=== PATIENT | female | born 1950 | race Caucasian/White ===

== ENCOUNTER → 2023-10-26 12:00 | Outpatient (REF) | payer MEDICARE, OTHER, SELFPAY ==
--- NOTE | 2023-10-08 12:37 | PN.DIAED02 ---
Referral
DSME Class Series Code: [id number]
Referred For: Diabetes Self-Management Training, Self-Blood Glucose Monitoring, Disease Management
PHI Release Authorization Form Signed: Yes
Patient Problems:
Current Active Problems
Problem Status Onset
Type 2 diabetes mellitus with hyperglycemia ~07/16/23
Demographic
(1) Type 2 diabetes mellitus with hyperglycemia
Status: Acute Onset Date: ~07/16/23
Qualifiers:
Diabetes mellitus termite renewal inspector insulin use: without correction use Qualified Code(s): E11.65 - Type 2 diabetes mellitus with hyperglycemia
Code(s): E11.65 - Type 2 diabetes mellitus with hyperglycemia
Patient's primary language-: [place]
Education: College degree
Occupation: Professional
Hours Worked/Week: 20-40
Shift: Day
- Social
Primary Support Person: Self
Primary Care Takers: Self
Living Arrangements: Self & spouse
- Learning Methods
Preferred Method: Hands-on demonstration
Barriers to Learning: None
Glycemic Control
- Blood Glucose Monitoring Assessment
Blood glucose monitoring at home: No
Patient uses Alternate Site Testing: No
Patient instructed on Use and Limitation: No
- Ketone Monitoring Assessment
Patient monitoring ketone: No
- Hemoglobin A1c
Date: 07/02/23
A1C Percentage (%): 10
Medical History of Diabetes
Previous visit with Dietitian: No
Complications/Comorbidity/Specialist: Cataracts, Hypertension, Hyperlipidemia, Neuropathy
Measures
- Anthropometrics
Height: 5 ft 6 in
Actual Weight: 97.976 kg
- Blood Pressure / Pulse
Blood pressure: 197/105
Pulse: 92
- Diabetes Management
Medical Management for Diabetes: Complete physical exam (07/02/2023), Foot exam (07/02/2023), Pneumonia vaccination (07/02/2023)
Self-Care
- Tobacco Usage
Do you now, or have you ever smoked?: Never smoked
- Alcohol & Drugs Usage
Drinks Alcohol: Yes
Amount/day: Other (2 drinks/week)
Uses Recreational Drugs: No
- Meals & Dining
Meals & Dining: Patient skips meals: No, Food Intolerance / Allergy: No, Cultural / Baptism Dietary Needs: No
Primary Food Psychiatric Registered Nurse: Self
Primary Information Strategist: Self
Dining Out Frequency: 1-3x per week
- Physical Activity
Physical Limitation: No
Patient participates in physical Activity: No
- Self Foot-Care
Foot Problems: None
Performs Self Foot-Exam: Yes
Frequency: Daily
- Patient-Self Assessment
Diabetes Knowledge: Good
Feelings About Diabetes: Fear
General Health: Fair
Importance of Health: Extremely
Stress Level: Medium
Diabetes Interferes With:: Sports/exercise
Barriers to Diabetes Management: Nothing
Depression Survey Score: 6
- Diabetes Identification
Carries Diabetes Identification: No
Diabetes Identification Information Provided: No
Care Plan
- Education Needs
Patient Education Needs: Diabetes disease process, Chronic complications, Acute complications, Medication, Monitoring, Physical activity, Psychosocial Adjustment, Nutritional management, Goal setting & problem solving
Recommended Diabetes Training Program based on assessment: Outpatient Diabetes Education Program
- Plan of Care
Plan of Care:
Met with Maggie today for registration and initiation of Diabetes Self management. Pt was recommended by her PCP due to uncontrolled T2DM, with an A1C of 10% that was noted on recent blood work. Patient is taking Metformin 500mg BID. She does not
test her blood sugar at home and does not have a glucose monitor. Patient was offered a meter and she declined it, stating that she's going to ask her PCP for script for a CGM- Dexcom or Debbi. Discussed different brands of CGMs and the way they
work.
Patient does not exercise, she was counseled with emphasis on the importance of Physical activity, weight loss, need to adhere to a healthy life style including healthy eating, taking her medications and monitoring blood glucose. We spent a good
amount of time discussing dietary choices. Goals for physical activity were established; pt will start walking for 30 minutes, 3 days a week around the block [place] . increase her duration of exercise to 45 minutes, 5 days
a week.
--- NOTE | 2023-10-09 11:33 | PN.DIAED04 ---
Education Record
- Education Record
Class Attended: Other (Pre-Registration for DSME Classes)
DSME Class Series Code: [id number]
Instructor: Nurse Practitioner
Class Length (mins): 60
Pre-Program Knowledge: Demonstrates competency
Pre-Test Score (%): 80
Goals
- Goal 1
Being Active: Exercise 30 minutes-5 times per week
Goals To Be Evaluated: Exercise 30 mins-5x/week
- Goal 2
Healthy Eating: Make better food choices, Follow meal plan, Reduce portion sizes
Goals To Be Evaluated: Make better food choices. Follow meal plan. Reduce portion sizes
- Goal 3
Monitoring: Follow monitoring schedule, Monitor more often (Get CGM -Dexcom )
Goals To Be Evaluated: Follow monitoring times. Monitor more often
--- NOTE | 2023-10-27 14:15 | PN.DIAED14 ---
This is to notify you that your patient with diabetes, STEFANY ROWLAND ( 1950), has enrolled in our diabetes self-management classes that are being held at [facility].
These classes will include an introduction to diabetes, diet, medication, exercise and prevention of complications. At the end of our class series, you will receive a report of your patient's participation and progress for your records.
Please contact me at the Diabetes [facility], , if there is any particular information regarding your patient that might be helpful to me.
Sincerely,
CRYSTAL Valdivia-, [facility]
Director
Diabetes & Nutrition Services
== END ==
LOC: DES 12:00
PROVIDERS: ATTENDING PHYSICIAN Physician Assistant Medical
DX: E11.65 Type 2 diabetes mellitus with hyperglycemia (principal)
CPT/HCPCS: 99078

== ENCOUNTER → 2023-11-02 12:00 | Outpatient (REF) | payer MEDICARE, OTHER, SELFPAY ==
--- NOTE | 2023-11-03 10:48 | PN.DIAED04 ---
Education Record
- Education Record
Class Attended: Class 2
DSME Class Series Code: [id number]
Instructor: Registered Dietitian (Caro Gavin, RD, LDN, CDE)
Class Length (mins): 120
== END ==
LOC: DES 12:00
PROVIDERS: ATTENDING PHYSICIAN Physician Assistant Medical
DX: E11.65 Type 2 diabetes mellitus with hyperglycemia (principal)
CPT/HCPCS: 99078

== ENCOUNTER → 2023-11-09 12:00 | Outpatient (REF) | payer MEDICARE, OTHER, SELFPAY | LOC: DES 12:00 | PROVIDERS: ATTENDING PHYSICIAN Physician Assistant Medical | DX: E11.65 Type 2 diabetes mellitus with hyperglycemia (principal) | CPT/HCPCS: 99078 ==

== ENCOUNTER → 2023-11-16 12:00 | Outpatient (REF) | payer MEDICARE, OTHER, SELFPAY | LOC: DES 12:00 | PROVIDERS: ATTENDING PHYSICIAN Physician Assistant Medical | DX: E11.65 Type 2 diabetes mellitus with hyperglycemia (principal) | CPT/HCPCS: 99078 ==

== ENCOUNTER → 2023-11-23 12:00 | Outpatient (REF) | payer MEDICARE, OTHER, SELFPAY ==
--- NOTE | 2023-11-24 11:45 | PN.DIAED16 ---
This is to notify you that your patient with diabetes, STEFANY ROWLAND ( 1950), has attended the entire series of Diabetes Self-Management Education Classes.
Class 1 (120 minutes): Diabetes Overview - monitoring, stress/psychosocial adjustment, support, goal setting
Class 2 (120 minutes): Meal Planning - serving sizes, menu plans
Class 3 (120 minutes): Introduction to Carbohydrate Counting, Analyzing Food Labels
Class 4 (120 minutes): Medication, Exercise and Activity
Class 5 (120 minutes): Sick Day Management, Strategies to Reduce Complications, Problem Solving, Resources
The following behavioral goals were identified:
Exercise 30 mins-5x/week
Make better food choices
Follow meal plan
Reduce portion sizes
Follow monitoring times
Monitor more often
A follow-up call will be made within three to six months to evaluate attainment of these goals and to check post-program Hemoglobin A1c and overall progress. All class participants are encouraged to contact me if I can be any further assistance in
learning how to manage their diabetes.
Sincerely,
CRYSTAL Valdivia-, [facility]
Director
Diabetes & Nutrition Services
--- NOTE | 2023-11-25 14:51 | PN.DIAED04 ---
Education Record
- Education Record
Class Attended: Class 5
DSME Class Series Code: [id number]
Instructor: Nurse Practitioner (CRYSTAL Boles)
Class Curriculum:
Outpatient Diabetes Education Program:
Class 5 (120 minutes)
Prevent, detect, and treat acute complications
Prevent, detect, and treat chronic complications through risk reduction
Develop personal strategies to address psychosocial issues and concerns
Development of diabetes self-management support plan
Letter to physician with DSMS plan attached sent
Class Length (mins): 120
Post-Program Knowledge: Demonstrates competency
Post-Test Score (%): 80
Post-Program Assessment
- Post-Program Assessment
Actual Weight: 93.894 kg
Blood pressure: 176/86
Post-Program Depression Survey Score: 4
Reviewing Previous Goals?: Yes
Pre-Program Depression Survey Score: 6
- Goals 1 Evaluation
Goals To Be Evaluated: Exercise 30 mins-5x/week
- Goals 2 Evaluation
Goals To Be Evaluated: Make better food choices. Follow meal plan. Reduce portion sizes
- Goals 3 Evaluation
Goals To Be Evaluated: Follow monitoring times. Monitor more often
--- NOTE | 2023-11-25 15:39 | PN.DIAED22 ---
- DSME LT-Depress Improved
Depression is associated with poor diabetes self-management and perceived inability to control diabetes.
After careful consideration and multiple layers of input, the [facility]'s outpatient diabetes education program has implemented a depression screening tool. The tool is the PHQ-9 Quick Depression Assessment.
Each patient who attends the outpatient diabetes education class responds to 9 questions before the first class starts. At the completion of the 5 classes, each patient again responds to the same 9 questions. In theory, after completing the program
the hope is that the patient will feel somewhat more capable of diabetes self-management.
Your patient, STEFANY ROWLAND ( 1950), scored 6 on the pre-depression screening (indicating mild depression) and 4 on the post-depression screening depression.
If you require any additional information, please do not hesitate to contact me at [phone].
Sincerely,
CRYSTAL Valdivia-FRED, [facility]
Director
Diabetes & Nutrition Services
== END ==
LOC: DES 12:00
PROVIDERS: ATTENDING PHYSICIAN Physician Assistant Medical
DX: E11.65 Type 2 diabetes mellitus with hyperglycemia (principal)
CPT/HCPCS: 99078